=== PATIENT | male | born 2000 ===

== ENCOUNTER 2023-08-12 20:27 | Emergency (ER) | payer SELFPAY ==
[~2023-08-12] VITALS: Ht 167.6 cm; Wt 69.7 kg
[2023-08-12 23:30] VITALS: BP 129/72; TEMP 98.3; O2SAT 98
== END 2023-08-13 01:30 | disposition left against medical advice (07) ==
LOC: M ED 20:27
DX: Z53.21 Procedure and treatment not carried out due to patient leaving prior to being seen by health care provider (principal)